=== PATIENT | male | born 1975 | race African-American/Black ===

== ENCOUNTER 2016-11-13 05:10 | Emergency (ER) | payer OTHER ==
[~2016-11-13] VITALS: Ht 170.1 cm; Wt 54.4 kg
[~2016-11-13 05:10] MED LIST: AMOXICILLIN500 M2 PO; ANAPROX DS550 MG PO; ATIVAN1 MG PO; CLINDAMYCIN HC300 MG PO; CYCLOBENZAPRINE10 MG PO; HYDROCODONE BIT1 T11 PO; NAPROSYN250 MG PO; NAPROSYN500 MG PO; NORCO 5-325 TA1 EACH PO; PRILOSEC20 M1 PO; VISTARIL25 M2 PO
[2016-11-13 05:57] LABS: BASO % 0.3 % (0.0-1.0); EOS # 0.1 10*3/uL (0.0-0.4); EOS % 2.4 % (1.0-4.0); HEMATOCRIT 44.7 % (42.0-52.0); HEMOGLOBIN 15.3 g/dl (14.0-18.0); LYMPH # 2.6 10*3/uL (1.3-4.4); LYMPH % 43.7 % (27.0-41.0); MEAN CELL VOLUME 91.6 fl (80.0-94.0); MEAN CORPUSCULAR HGB 31.4 pg (27.0-31.0); MEAN CORPUSCULAR HGB CONC 34.2 g/dl (33.0-37.0); MEAN PLATELET VOLUME 11.1 fl (9.6-12.3); MONO # 0.3 10*3/uL (0.1-1.0); MONO % 4.9 % (3.0-9.0); NEUT # 2.8 10*3/uL (2.3-7.9); NEUT % 48.2 % (47.0-73.0); PLATELET COUNT AUTOMATED 173 10*3/uL (130-400); RED BLOOD COUNT 4.88 10*6/uL (4.50-5.90); RED CELL DISTRI WIDTH 12.9 % (0-14.5); WHITE BLOOD COUNT 5.9 10*3/uL (4.8-10.8)
[2016-11-13 06:05] LABS: PROTHROMBIN TIME 10.8 SECONDS (9.0-12.4)
[2016-11-13 06:12] LABS: BUN 10 mg/dl (7-24); CARBON DIOXIDE 28 mmol/L (21-32); CHLORIDE 105 mmol/L (98-107); CKMB 0.6 ng/ml (0.5-3.6); CPK 182 U/L (39-308); EST GLOM FILT AFRICAN AMERICAN > 60 ml/min; GLUCOSE 128 mg/dL (65-99); POTASSIUM 3.4 mmol/L (3.5-5.1); SODIUM 141 mmol/L (136-145)
[2016-11-13 06:14] LABS: TROPONIN I < 0.015 ng/ml (<0.045)
[2016-11-13] MEDS ORDERED: AMBIEN10 M1 PO (06:32)
== END 2016-11-13 06:44 | disposition home or self-care (01) ==
LOC: ED 05:10
PROVIDERS: Emergency Medicine
DX: R07.89 Other chest pain (principal); F41.9 Anxiety disorder, unspecified; K21.9 Gastro-esophageal reflux disease without esophagitis; F17.200 Nicotine dependence, unspecified, uncomplicated; F12.10 Cannabis abuse, uncomplicated

== ENCOUNTER 2017-02-21 23:24 | Emergency (ER) | payer SELFPAY ==
[~2017-02-21] VITALS: Ht 170.1 cm; Wt 54.4 kg
[~2017-02-21 23:24] MED LIST changes: +AMBIEN10 M1 PO
[2017-02-22 00:31] LABS: BASO % 0.4 % (0.0-1.0); EOS # 0.1 10*3/uL (0.0-0.4); EOS % 1.6 % (1.0-4.0); LYMPH # 2.2 10*3/uL (1.3-4.4); LYMPH % 38.4 % (27.0-41.0); MEAN CELL VOLUME 91.6 fl (80.0-94.0); MEAN CORPUSCULAR HGB 30.5 pg (27.0-31.0); MEAN CORPUSCULAR HGB CONC 33.3 g/dl (33.0-37.0); MEAN PLATELET VOLUME 11.1 fl (9.6-12.3); MONO # 0.3 10*3/uL (0.1-1.0); NEUT # 3.1 10*3/uL (2.3-7.9); NEUT % 54.4 % (47.0-73.0); PLATELET COUNT AUTOMATED 155 10*3/uL (130-400); RED BLOOD COUNT 4.91 10*6/uL (4.50-5.90); RED CELL DISTRI WIDTH 13.4 % (0-14.5); WHITE BLOOD COUNT 5.6 10*3/uL (4.8-10.8)
[2017-02-22 00:46] LABS: ALBUMIN 3.7 gm/dl (3.1-4.5); ALKALINE PHOSPHATASE 70 U/L (45-117); BILIRUBIN, TOTAL 0.2 mg/dl (0.2-1.0); BUN 12 mg/dl (7-24); C-REACTIVE PROTEIN < 0.29 MG/DL (0-0.3); CARBON DIOXIDE 27 mmol/L (21-32); CHLORIDE 106 mmol/L (98-107); CKMB 0.7 ng/ml (0.5-3.6); CPK 205 U/L (39-308); EST GLOM FILT AFRICAN AMERICAN > 60 ml/min; GLUCOSE 96 mg/dL (65-99); LDH 194 U/L (87-241); POTASSIUM 4.2 mmol/L (3.5-5.1); SGOT/AST 22 IU/L (3-35); SGPT/ALT 20 U/L (12-78); SODIUM 139 mmol/L (136-145); TOTAL PROTEIN 7.1 gm/dL (6.4-8.2); TROPONIN I < 0.015 ng/ml (<0.045)
[2017-02-22 01:15] LABS: BILIRUBIN NEGATIVE (NEGATIVE); BLOOD 3+ (NEGATIVE); CLARITY SL CLOUDY (CLEAR); COLOR YELLOW (YELLOW); GLUCOSE NEGATIVE (NEGATIVE); KETONE NEGATIVE (NEGATIVE); LEUKO ESTERASE NEGATIVE (NEGATIVE); NITRITE NEGATIVE (NEGATIVE); PROTEIN 1+ (NEGATIVE); SPECIFIC GRAVITY 1.025 (1.005-1.030)
[2017-02-22 01:21] LABS: RBC 21-30 rbc/hpf (0-2); WBC 0-2 wbc/hpf (0-5); YEAST TRACE
[2017-02-22 01:22] LABS: URINE REFLEX COMMENT YES (NO)
[2017-02-22] MEDS ORDERED: PROTONIX40 MG PO (03:19)
[2017-02-22] MEDS ORDERED: HYDROCODONE BIT1 T11 PO (03:19)
[2017-02-22] MEDS ORDERED: ZITHROMAX200 MG/51 PO (03:19)
== END 2017-02-22 03:34 | disposition home or self-care (01) ==
LOC: ED 23:24
PROVIDERS: Physician Assistant
DX: H66.92 Otitis media, unspecified, left ear (principal); R10.13 Epigastric pain; R68.84 Jaw pain; R07.9 Chest pain, unspecified; K21.9 Gastro-esophageal reflux disease without esophagitis; F12.10 Cannabis abuse, uncomplicated; Z87.891 Personal history of nicotine dependence

== ENCOUNTER 2017-05-10 13:55 | Emergency (ER) | payer OTHER ==
[~2017-05-10] VITALS: Ht 170.1 cm; Wt 61.2 kg
[~2017-05-10 13:55] MED LIST changes: +PANTOPRAZOLE SO40 MG PO; +PROTONIX40 MG PO; +ZITHROMAX200 MG/51 PO
[2017-05-10] MEDS ORDERED: COLACE100 MG PO (14:28)
[2017-05-10] MEDS ORDERED: ALLEGRA-D 24 H1 EACH PO (14:28)
[2017-05-10] MEDS ORDERED: FLONASE ALLERG9.9 ML NAS (14:28)
== END 2017-05-10 15:25 | disposition home or self-care (01) ==
LOC: ED 13:55
DX: H69.82 Other specified disorders of Eustachian tube, left ear (principal); K59.00 Constipation, unspecified; F12.10 Cannabis abuse, uncomplicated; F17.200 Nicotine dependence, unspecified, uncomplicated; Z79.899 Other long term (current) drug therapy

== ENCOUNTER 2017-12-30 05:16 | Emergency (ER) | payer OTHER ==
[~2017-12-30] VITALS: Ht 170.1 cm; Wt 61.2 kg
[~2017-12-30 05:16] MED LIST changes: +ALLEGRA-D 24 H1 EACH PO; +COLACE100 MG PO; +FLONASE ALLERG9.9 ML NAS
[2017-12-30] MEDS ORDERED: NAPROSYN EC375 MG PO (05:49)
[2017-12-30] MEDS ORDERED: PENICILLIN VK500 MG PO (05:49)
== END 2017-12-30 06:00 | disposition home or self-care (01) ==
LOC: ED 05:16
DX: K04.7 Periapical abscess without sinus (principal); F17.200 Nicotine dependence, unspecified, uncomplicated; F12.10 Cannabis abuse, uncomplicated; K21.9 Gastro-esophageal reflux disease without esophagitis; Z79.899 Other long term (current) drug therapy